=== PATIENT | female | born 1965 | race Caucasian/White ===

== ENCOUNTER → 2017-07-16 | Outpatient (CLI) | payer BC | LOC: FIMAGING 10:11 | PROVIDERS: ATTEND Obstetrics & Gynecology | DX: Z12.31 Encounter for screening mammogram for malignant neoplasm of breast (principal); Z80.3 Family history of malignant neoplasm of breast | CPT/HCPCS: G0202 ==

== ENCOUNTER → 2018-07-31 | Outpatient (CLI) | payer BC | LOC: FIMAGING 11:25 | PROVIDERS: ATTEND Nurse Practitioner Women's Health | DX: Z12.31 Encounter for screening mammogram for malignant neoplasm of breast (principal) ==

== ENCOUNTER 2018-11-18 05:53 | Day surgery (SDC) | payer BC ==
[2018-11-18] MEDS ORDERED: ceFAZolin 2 GM/DEXTROSE 100 ML IV ONE (06:08)
[2018-11-18] MEDS ORDERED: LR 1,000 ML IV SCH (06:08)
--- NOTE | 2018-11-18 06:08 | GHP ---
[f rep st] PREOP HISTORY AND PHYSICAL DATE OF ADMISSION: 11/18/2018 The patient is slated for surgery on 11/18/2018 on the gynecology service. HISTORY UPON ADMISSION: The patient is a 53-year-old, G2, P2, white female who has had postmenopausal bleeding and has a slightly thickened endometrium on ultrasound. There is a bulbous area in the fundal portion, 8 x 7 mm, possibly consistent with a polyp. The patient has been on hormone replacement for years for hot flashes and has gradually been decreasing these hormones since September. The patient wants to proceed with definitive management with a hysteroscopy to obtain tissue. The patient also has been found to have a positive gene mutation that increases her risk for breast cancer. Patient has RAD51C genetic mutation and wants to pursue the BSO due her slightly increased risk of ovarian cancer. Patient has been apprised to the risks and benefits of the surgery and the consent form is signed. PAST MEDICAL HISTORY: Perimenopausal symptoms for years with hot flashes with good control of bleeding until recently. As the patient has been taken off hormones, she has not had any bleeding. The patient also had irregular bleeding in 2015, with an ultrasound showing similar findings with a bulbous area in the left horn consistent with a possible polyp. She had a D and C at that time that did not reveal any abnormal tissue. There was difficulty during that surgery do to stenotic cervix. PAST SURGICAL HISTORY: x2 in 2001 and 2003 with a BTL with the second . Also, foot surgery in 2014. PAST OBSTETRIC HISTORY: Term delivery of 2 males with section x2. ALLERGIES: The patient has no known drug allergies; however, morphine causes nausea and vomiting. CURRENT MEDICATIONS: The patient has been tapering down to minimal estradiol and progesterone 100 mg daily. Patient has not had any bleeding since September as she has reduced her hormones. SOCIAL HISTORY: The patient is , lives with her and 2 sons. The patient is a nonsmoker. No alcohol or other drug use. The patient denied marijuana abuse. FAMILY HISTORY: The patient's sister had breast cancer at the age of 51 and initial genetic testing with BRCA was negative. The patient's sister was found to have RAD51C. The patient is also positive for this gene. The patient had a half sister who at the age of 41 from breast cancer. Maternal grandmother with colon cancer. PHYSICAL EXAMINATION: GENERAL: Upon admission, the patient is a well-developed , well-nourished, white female, in no acute distress. VITAL SIGNS: Patient is clinically afebrile with a blood pressure of 100/70, weight 140.6 pounds. LUNGS : Clear to auscultation bilaterally. CARDIOVASCULAR: Regular rate and rhythm. ABDOMEN: Soft and nontender. Endometrial biopsy was performed in September 2018 and this was negative. The uterus was small, mobile and nontender. No adnexal masses. EXTREMITIES: Nontender with no edema. ASSESSMENT: Positive gene mutation RAD51C with increased ovarian cancer risk as well as breast cancer risk. Postmenopausal bleeding, on hormone replacement , recently tapering off. Slightly thickened endometrium with possible polyp. PLAN: Proceed to the operating room for laparoscopic BSO risk reducing surgery. Following this, we will proceed with hysteroscopy and D and C if needed or polypectomy if polyp is found. The patient will have preoperative antibiotics and SCDs on during surgery. /[id number]/MODL MTDD
[2018-11-18] MEDS ORDERED: LR 1,000 ML IV ONE (06:10)
[2018-11-18] MEDS ORDERED: LIDOCAINE 1% 2 ML INJ ID PRN (06:10)
[2018-11-18] MEDS ORDERED: SILVER NITRATE APPLICATOR 1 APPL TP ONE (06:22)
[2018-11-18] MEDS ORDERED: BUPIVACAINE/EPI 0.5% 30 ML SDV ONE (06:22)
[2018-11-18] MEDS ORDERED: MIDAZOLAM 2 MG/2 ML VIAL IVP ONE (06:46)
--- NOTE | 2018-11-18 06:46 | PDANEPAE ---
ANE History of Present Illness hysteroscop;y, salpingooopherectomy ANE Past Medical History - Cardiovascular History Hx Hypertension: No Hx Arrhythmias: No Hx Chest Pain: No Hx Coronary Artery / Peripheral Vascular Disease: No Hx CHF / Valvular Disease: No Hx Palpitations: No - Pulmonary History Hx COPD: No Hx Asthma/Reactive Airway Disease: No Hx Recent Upper Respiratory Infection: No Hx Oxygen in Use at Home: No Hx Sleep Apnea: No Sleep Apnea Screening Result - Last Documented: Negative - Neurologic History Hx Cerebrovascular Accident: No Hx Seizures: No Hx Dementia: No - Endocrine History Hx Diabetes: No - Renal History Hx Renal Disorders: No - Liver History Hx Hepatic Disorders: No - Neurological & Psychiatric Hx Hx Neurological and Psychiatric Disorders: No - Cancer History Hx Cancer: No - Congenital Disorder History Hx Congenital Disorders: No - GI History Hx Gastrointestinal Disorders: No - Other Health History Other Health History: POST MENOPAUSAL BLEEDING - Chronic Pain History Chronic Pain: No - Surgical History Prior Surgeries: HYSTEROSCOPY 08/2016. , X2 FOOT REPAIR ANE Review of Systems Review of Systems: - Exercise capacity METS (RN): 5 METS ANE Patient History - Allergies Allergies/Adverse Reactions: morphine Allergy (Verified 11/05/18 14:40) NAUSEA - Home Medications Home Medications: Herbals/Supplements -Info Only DAILY 11/05/18 [Last Taken 3 Days Ago ~11/15/18] - NPO status NPO Status: no food or drink >8 hours NPO Since - Liquids (Date): 11/17/18 NPO Since - Liquids (Time): 23:00 NPO Since - Solids (Date): 11/17/18 NPO Since - Solids (Time): 21:00 - Anes Hx Anes Hx: no prior problems - Smoking Hx Smoking Status: Never smoked - Alcohol Use Alcohol Use: Rarely - Family Anes Hx Family Anes Hx: none Family Hx Anesthesia Complications: NONE ANE Labs/Vital Signs - Vital Signs Vital Signs: reviewed preoperatively; see RN documention for details Height: 170.18 cm Weight: 61.235 kg ANE Physical Exam - Airway Neck exam: FROM Mallampati Score: Class 2 Mouth exam: normal dental/mouth exam - Pulmonary Pulmonary: no respiratory distress, clear to auscultation - Cardiovascular Cardiovascular: regular rate and rhythym, no murmur, rub, or gallop - ASA Status ASA Status: II ANE Anesthesia Plan Anesthesia Plan: general endotracheal anesthesia
[2018-11-18 06:49] LABS: PLATELET COUNT 169 10^3/uL (150-400)
[2018-11-18] MEDS ORDERED: LIDOCAINE 2% 100 MG/5 ML SYR ONE (06:52)
[2018-11-18] MEDS ORDERED: PROPOFOL 200 MG/20 ML VIAL ONE (06:52)
[2018-11-18] MEDS ORDERED: ROCURONIUM 50 MG/5 ML VIAL ONE (06:52)
[2018-11-18] MEDS ORDERED: fentaNYL 100 MCG/2 ML INJ ONE (06:52)
[2018-11-18] MEDS ORDERED: DEXAMETHASONE 4 MG/ML VIAL ONE (08:15)
[2018-11-18] MEDS ORDERED: ONDANSETRON 4 MG/2 ML VIAL ONE ×2 (08:15→10:14)
[2018-11-18] MEDS ORDERED: ACETAMINOPHEN 500 MG TAB PO PRN (09:14)
[2018-11-18] MEDS ORDERED: PROMETHAZINE HCL 25 MG/ML INJ IVP PRN (09:14)
[2018-11-18] MEDS ORDERED: HYDROmorphONE/DILAUDID 2 MG/ML INJ IVP PRN (09:14)
[2018-11-18] MEDS ORDERED: HYDROCODONE/APAP 5/325 TAB PO PRN (09:14)
[2018-11-18] MEDS ORDERED: fentaNYL 100 MCG/2 ML INJ IVP PRN (09:14)
[2018-11-18] MEDS ORDERED: ONDANSETRON 4 MG/2 ML VIAL IVP PRN (09:14)
[2018-11-18] MEDS ORDERED: NALOXONE HCL 0.4 MG/ML INJ IVP PRN (09:14)
[2018-11-18] MEDS ORDERED: oxyCODONE IR 5 MG TAB PO PRN ×2 (09:14→09:46)
[2018-11-18] MEDS ORDERED: DIAZEPAM 5 MG/ML 1 ML SYR IVP PRN (09:14)
--- NOTE | 2018-11-18 09:35 | POSTANESTH ---
Post Anesthetic Evaluation Cardiovascular Status: Normal, Stable, Similar to Pre-Op Cond Respiratory Status: Normal, Stable, Similar to Pre-op Cond. Level of Consciousness/Mental Status: Can Participate in Eval, Alert and Oriented Pain Control: Adequate, Prn Tx Ordered Nausea/Vomiting Control: Adequate, Prn Tx Ordered Complications Possibly Related to Anesthesia: None Noted
[2018-11-18] MEDS ORDERED: ACETAMINOPHEN 325 MG TAB PO PRN (09:48)
--- NOTE | 2018-11-18 09:56 | POSTOPPROG ---
Post Op Note Date of Operation: 11/18/18 Surgeon: Sharlene Bucio Anesthesiologist: Abhinav Henry MD Anesthesia: GET(General Endotracheal) Pre-op Diagnosis: [employer] bleeding, slightly thickened EMT, positive genetic cancer risk Post-op Diagnosis: same Indication: [employer] off/on with HRT - last Sep, EMT 8x7mm, +RAD51C and FHx Br/ov CA Procedure: rrBSO, HSC polypectomy Findings: nl ut/tubes/ov, evidence of scar, small polyp in left cornua o/w thin EMT, Inf/Abcess present in the surg proc area at time of surgery?: No Depth: Organ Space EBL: 50-100 (50cc) Total fluids administered: 1100cc Complications: none, fluid def on HSC at 290cc, tight dilation to 6.5 Rand Specimen(s): Bilat tubes and ovaries. endometrial polyp
[2018-11-18] MEDS ORDERED: PROMETHAZINE HCL 25 MG/ML INJ ONE (10:30)
[2018-11-18 11:34] VITALS: BP 119/72
== END 2018-11-18 13:15 | disposition home or self-care (01) ==
LOC: FSGY 05:53
PROVIDERS: ATTEND Obstetrics & Gynecology
DX: N95.0 Postmenopausal bleeding (principal); N84.0 Polyp of corpus uteri; Z40.02 Encounter for prophylactic removal of ovary(s); Z40.03 Encounter for prophylactic removal of fallopian tube(s); Z15.01 Genetic susceptibility to malignant neoplasm of breast; Z79.890 Hormone replacement therapy; Z80.3 Family history of malignant neoplasm of breast
CPT/HCPCS: 58558; 58661; C1782; J0690; J1100; J2001; J2250; J2405; J2550; J2704; J3010

== ENCOUNTER → 2019-02-27 | Outpatient (CLI) | payer BC | LOC: FIMAGING 11:54 ==